=== PATIENT | female | born 1995 | race Caucasian/White ===

== ENCOUNTER → 2018-02-07 17:53 | Outpatient (CLI) | payer BC, OTHER, SELFPAY | PROVIDERS: Visit Provider Dentist Oral and Maxillofacial Surgery | DX: M26.609 Unspecified temporomandibular joint disorder, unspecified side (principal) ==

== ENCOUNTER 2018-03-31 16:54 | Emergency (ER) | payer BC, OTHER, SELFPAY ==
[2018-03-31 16:58] VITALS: BP 107/74; PULSE 77; RESP 18; TEMP 37; O2SAT 100; BMI 30.6
--- NOTE | 2018-03-31 18:09 | ED_ITS ---
HPI - Abdominal Pain General Chief Complaint: Abdominal Pain Stated Complaint: NO BOWEL MOVEMENT OVER A WEEK Time Seen by Provider: 03/31/18 18:09 Source: patient Mode of arrival: ambulatory Limitations: no limitations History of Present Illness HPI narrative: Patient is an otherwise healthy 22-year-old female 3 weeks from a spontaneous vaginal delivery which has been uncomplicated. She states that she has not had a bowel movement for the past week. She states she feels like she has the urge to have a bowel movement and feels like there is stool closed coming out however she states that it feels like it is large and very painful. No urinary symptoms. No vaginal bleeding. States that a couple days ago she started taking Colace however this has not helped. Denies any hemorrhoids. Related Data Previous Rx's Medication Instructions Recorded sodium phosphates [Enema] 118 ml MO DAILY PRN #133 ml 03/31/18 Allergies Allergy/AdvReac Type Severity Reaction Status Date / Time No Known Allergies Allergy Uncoded 03/31/18 17:02 Review of Systems Constitutional Denies headache(s) ENT Ears, Nose, Mouth, and Throat: Denies headache(s) Cardiovascular Denies chest pain and Denies dyspnea Respiratory Denies dyspnea Gastrointestinal Gastrointestinal: Denies abdominal pain, Denies bloating, Reports constipation, Denies diarrhea, Denies nausea and Denies vomiting Genitourinary Denies dysuria and Denies vaginal discharge Musculoskeletal Denies myalgias and Denies arthralgias Integumentary/Breasts Denies lesions and Denies rash Neurologic Denies headache(s) Hematologic/Lymphatic Denies easy bleeding and Denies easy bruising PFSH Medical History Healthy adult (Acute) Surgical History No pertinent past surgical history (Acute) Social History Smoking Status: Former smoker Exam Initial Vital Signs Initial Vital Signs: Vital Signs Temperature 98.6 F 03/31/18 16:58 Pulse Rate 77 03/31/18 16:58 Respiratory Rate 18 03/31/18 16:58 Blood Pressure 107/74 03/31/18 16:58 Pulse Oximetry 100 03/31/18 16:58 Const General: cooperative, healthy appearing, comfortable, well developed, well groomed and No acute distress Orientation: alert, awake and oriented x3 HENMT Head: normal to inspection and normocephalic Resp Effort & Inspection: normal respiratory effort Auscultation: clear to auscultation bilaterally Cardio Rate: regular rate Rhythm: regular rhythm GI Inspection: non-distended Palpation: soft, No rigid and No tender Rectal Exam: visual inspection normal, normal sphincter tone, No fecal impaction , No hemorrhoids and other (Stool very high in the rectal vault. Unable to manually disimpact) Skin Lesions: no lesions Rashes: no rashes Neuro General: alert, awake and oriented x3 Extrem General: capillary refill normal Psych Appearance: grossly normal and well kempt Course Vital Signs - 8 hr 03/31/18 19:30 03/31/18 20:21 Pulse Rate 74 Respiratory Rate 16 Blood Pressure [Left Arm] 99/52 L Pulse Oximetry 98 MDM - Abdominal Pain MDM Narrative Medical decision making narrative: Discussed the options with the patient to include laxatives at home, enemas at home, enema here in the emergency department, manual disimpaction. After this discussion the patient opted for an enema here in the emergency department. She states that she got a very small amount of stool out with this enema. Attempted to manually disimpact however the stool was very high in the rectal vault was unable to remove any. I did discuss all this with the patient. We did discuss the importance of staying hydrated. We did discuss the importance of an oral laxative such as MiraLax. Also given prescription for an enema that she can do at home. I did inform her that the next couple bowel movements would probably be very hard and somewhat painful. I also informed her that she may get some blood in the stool or on the paper afterwards. Also informed her that she may develop a hemorrhoid secondary to this. We did discuss return precautions. Will hold on further radiologic studies for now. Patient expressed understanding and agreement with plan. Discharge Plan Departure Patient Disposition: Home Clinical Impression: Constipation Discharge Date/Time: 03/31/18 20:21 Interventions: ED Discharge Assessment Last Done: 03/31/18 20:21 Instructions: Constipation (Alternative Therapy), Constipation Activity Restrictions/Additional Instructions: You can continue to take the Colace. Also recommend that you increase your fluid intake. I would also highly recommend that you purchase a laxative such as MiraLax over the counter. You can take this up to 4 times a day. Start with just once a day. Keep all of your scheduled medical appointments. Return to the emergency department for any new or worsening symptoms Prescriptions: New sodium phosphates [Enema] 19-7 gram/118 mL enema 118 ml MO DAILY PRN (Reason: constipation) Qty: 133 RF: 0
[2018-03-31 19:30] VITALS: BP 99/52; PULSE 74; O2SAT 98
[2018-03-31 20:21] VITALS: RESP 16
== END 2018-03-31 20:21 | disposition home or self-care (01) ==
PROVIDERS: Emergency Provider Emergency Medicine
DX: K59.00 Constipation, unspecified (principal)
CPT/HCPCS: 99282; 99283

== ENCOUNTER 2018-04-01 04:12 | Emergency (ER) | payer BC, OTHER, SELFPAY ==
[2018-04-01 04:19] VITALS: BP 114/81; PULSE 130; RESP 18; TEMP 36.2; O2SAT 97
--- NOTE | 2018-04-01 04:21 | ED_ITS ---
HPI - Abdominal Pain General Chief Complaint: Abdominal Pain Stated Complaint: constipation x3 days Time Seen by Provider: 04/01/18 04:19 Source: patient Mode of arrival: ambulatory Limitations: no limitations History of Present Illness HPI narrative: 22-year-old female who I evaluated the beginning of my shift today for constipation 3 weeks after having a vaginal delivery returns again for continued issues with constipation. Patient states she went home and has had a lot of pressure in her rectum however quite a bit of pain and unable to pass any stool. She has not tried the enema that she was prescribed during her last visit here. She states that she lives in an apartment building and thought that all of her screening would cause the neighbors to call the police that she return to the emergency department. Related Data Previous Rx's Medication Instructions Recorded sodium phosphates [Enema] 118 ml [place] DAILY PRN #133 ml 03/31/18 Allergies Allergy/AdvReac Type Severity Reaction Status Date / Time No Known Allergies Allergy Uncoded 03/31/18 17:02 Review of Systems Constitutional Denies fever(s) Cardiovascular Denies chest pain and Denies dyspnea Respiratory Denies dyspnea Gastrointestinal Gastrointestinal: Reports constipation, Denies nausea and Denies vomiting Musculoskeletal Denies back pain Integumentary/Breasts Denies lesions and Denies rash [facility] Medical History Healthy adult (Acute) Surgical History No pertinent past surgical history (Acute) Social History Smoking Status: Former smoker Exam Initial Vital Signs Initial Vital Signs: Vital Signs Temperature 97.2 F L 04/01/18 04:19 Pulse Rate 130 H 04/01/18 04:19 Respiratory Rate 18 04/01/18 04:19 Blood Pressure 114/81 04/01/18 04:19 Pulse Oximetry 97 04/01/18 04:19 Const General: cooperative, well developed, well groomed and No acute distress Orientation: alert, awake and oriented x3 Resp Effort & Inspection: normal respiratory effort GI Inspection: non-distended Palpation: soft Other: On this rectal exam there was a very small amount of soft stool. Was very uncomfortable for the patient to do the rectal exam. No hemorrhoids were felt. Skin Lesions: no lesions Rashes: no rashes Neuro General: alert, awake and oriented x3 Extrem General: normal to inspection and capillary refill normal Course Vital Signs - 8 hr 04/01/18 04:19 04/01/18 05:59 Temperature 97.2 F L Pulse Rate 130 H 79 Respiratory Rate 18 18 Blood Pressure 114/81 Blood Pressure [Left Arm] 114/70 Pulse Oximetry 97 98 MDM - Abdominal Pain MDM Narrative Medical decision making narrative: Unable to get remove any significant amount of stool by manual disimpaction. Patient was given a soapsuds enema here in the emergency department and she was able to have a bowel movement. Patient was given return precautions. She expressed understanding and agreement with plan. Discharge Plan Departure Patient Disposition: Home Clinical Impression: Constipation Instructions: Constipation (Alternative Therapy) Activity Restrictions/Additional Instructions: Continue to stay hydrated. I would also recommend that you continue with the oral laxatives likely discussed earlier today until you are having regular soft bowel movements. This may lead to a period of time where you're having diarrhea and if this happens just stop the laxatives. Return to the emergency department for new or worsening symptoms Prescriptions: No Action sodium phosphates [Enema] 19-7 gram/118 mL enema 118 ml [place] DAILY PRN (Reason: constipation) Qty: 133 RF: 0
[2018-04-01 05:59] VITALS: BP 114/70; PULSE 79; RESP 18; O2SAT 98
--- NOTE | 2018-04-01 05:59 | PC.NURSE ---
After enema pt was able to have bowel movement, pt endorses relief.
--- NOTE | 2018-04-06 15:49 | PC.NURSE ---
Called pt for follow up,no answer
== END 2018-04-01 06:20 | disposition home or self-care (01) ==
PROVIDERS: Emergency Provider Emergency Medicine
DX: K59.00 Constipation, unspecified (principal)
CPT/HCPCS: 99282; 99283